=== PATIENT | female | born 1995 | race Two or more races ===

== ENCOUNTER 2017-03-21 19:51 | Observation (INO) | payer MEDICAID ==
[2017-03-21 20:47] LABS: Urine Bilirubin Negative (Negative); Urine Blood Negative /uL (Negative); Urine Color Yellow (Yellow); Urine Glucose Normal (Normal); Urine Ketone Negative (Negative); Urine Mucus FEW (None Seen); Urine Nitrite Negative (Negative); Urine RBC 1 /hpf (0 - 4); Urine Squamous Epithelial Cell FEW /hpf (<5); Urine Urobilinogen Normal (Negative)
[2017-03-21] MEDS ORDERED: FERR325T PO (21:03)
[2017-03-21] MEDS ORDERED: PREN-96 PO (21:04)
== END 2017-03-21 20:45 | disposition home or self-care (01) | DRG 566 ==
LOC: LDRP 19:51
PROVIDERS: ADMIT Specialist; ATTEND Specialist
DX: O26.893 Other specified pregnancy related conditions, third trimester (principal); R10.2 Pelvic and perineal pain; Z3A.32 32 weeks gestation of pregnancy
CPT/HCPCS: 59025; 80307; 81001; 81002; G0378

== ENCOUNTER 2017-05-02 02:24 | Observation (INO) | payer MEDICAID ==
[~2017-05-02 02:24] MED LIST: FERR325T PO; PREN-96 PO
[2017-05-02 04:03] LABS: Urine Bacteria FEW /hpf (None Seen); Urine Blood Negative /uL (Negative); Urine Mucus FEW (None Seen); Urine Specific Gravity 1.035 (1.001-1.035); Urine WBC 19 /hpf (0 - 5)
[2017-05-02 04:21] LABS: Alcohol, Urine < 3.0 mg/dL (0-5); Amphetamine Screen, Urine NEGATIVE (NEGATIVE); Barbiturate Scree,Urine NEGATIVE (NEGATIVE); Benzodiazephine Screen, Urine NEGATIVE (NEGATIVE); Cannabinoid Screen, Urine NEGATIVE (NEGATIVE); Cocaine Screen, Urine NEGATIVE (NEGATIVE); Opiate Scree,Urine NEGATIVE (NEGATIVE); Phencyclidine Screen, Urine NEGATIVE (NEGATIVE)
== END 2017-05-02 06:50 | disposition home or self-care (01) | DRG 566 ==
LOC: LDRP 02:24
PROVIDERS: ADMIT Specialist; ATTEND Specialist
DX: O26.893 Other specified pregnancy related conditions, third trimester (principal); N89.8 Other specified noninflammatory disorders of vagina; O99.333 Smoking (tobacco) complicating pregnancy, third trimester; Z3A.38 38 weeks gestation of pregnancy
CPT/HCPCS: 59025; 76805; 76818; 80307; 81001; 81002; 87081; G0378

== ENCOUNTER 2017-05-13 12:55 | Observation (INO) | payer MEDICAID ==
[~2017-05-13] VITALS: Ht 165.1 cm; Wt 97.5 kg
[2017-05-13] MEDS ORDERED: LACTATED RINGER'S 1,000 ML IV ONE (13:45)
[2017-05-13] MEDS ORDERED: FOLI1TAB6 PO (13:46)
[2017-05-13 14:38] LABS: Basophils # (auto) 0.1 uL; Basophils % (auto) 0.5 % (0.0-2.0); Eosinophils # (auto) 0.1 uL; Eosinophils % (auto) 0.8 % (0.0-7.0); Hematocrit 40.8 % (36.0-46.0); Hemoglobin 14.2 g/dL (12.2-16.2); Lymphocytes # (auto) 1.7 uL; Lymphocytes % (auto) 12.1 % (10.0-50.0); Mean Corpuscular Hemoglobin 31.2 pg (28.0-32.0); Mean Corpuscular Hgb Conc. 34.7 g/dL (32.0-36.0); Mean Corpuscular Volume 89.9 fL (80.0-100.0); Mean Platelet Volume 8.6 fL (6.9-10.8); Monocytes # (auto) 0.9 uL; Monocytes % (auto) 6.2 % (0.0-12.0); Neutrophils # (auto) 11.4 uL; Neutrophils % (auto) 80.4 % (37.0-80.0); Platelet Count (auto) 200 10^3/uL (140-450); Red Cell Distribution Width 14.1 % (11.8-14.3); White Blood Cell 14.2 10^3/uL (4.4-10.8)
[2017-05-13 14:58] LABS: Albumin 2.3 g/dL (3.4-5.0); BUN/Creatinine Ratio 13.3; Bilirubin, Total 0.2 mg/dL (0.2-1.0); Calcium 8.6 mg/dL (8.5-10.1); Potassium 4.1 mmol/L (3.5-5.1); Total Protein 6.4 g/dL (6.4-8.2)
[2017-05-14] MEDS ORDERED: CLINDAMYCIN 900MG IV 50 ML IV ONE (00:23)
== END 2017-05-13 16:00 | disposition home or self-care (01) | DRG 566 ==
LOC: INTOOBSV 12:55 → LDRP 12:55
PROVIDERS: ADMIT Obstetrics & Gynecology; ATTEND Obstetrics & Gynecology
DX: O62.9 Abnormality of forces of labor, unspecified (principal); Z87.891 Personal history of nicotine dependence; Z3A.40 40 weeks gestation of pregnancy
CPT/HCPCS: 36415; 59025; 76805; 76818; 80053; 80307; 81002; 85025; 86592; G0378; 96365; 96366

== ENCOUNTER 2017-05-13 22:42 | Inpatient (IN) | payer MEDICAID ==
[~2017-05-13] VITALS: Ht 165.1 cm; Wt 97.5 kg
[~2017-05-13 22:42] MED LIST changes: +FOLI1TAB6 PO
[2017-05-14] MEDS ORDERED: LACT. RINGERS/OXYTOCIN 20UNITS 1,000 ML IV SCH ×2 (00:21→08:06)
[2017-05-14] MEDS ORDERED: METHYLERGONOVINE MALEATE 0.2 MG/ML AMP IM PRN (00:30)
[2017-05-14] MEDS ORDERED: DERMOPLAST 60ML BOTTLE TOP PRN (00:30)
[2017-05-14] MEDS ORDERED: PHISODERM TOP SOLN 240ML BTL TOP PRN (00:30)
[2017-05-14] MEDS ORDERED: LIDOCAINE 2%HCL (LOCAL ANESTH.) INJ 20ML MDV IJ PRN (00:30)
[2017-05-14] MEDS ORDERED: NALBUPHINE HCL 10 MG/1ml INJECTION IV PRN (00:30)
[2017-05-14] MEDS ORDERED: WITCH HAZEL-GLYCERIN PAD TOP PRN (00:30)
[2017-05-14] MEDS: LACTATED RINGER'S 1,000 ML IV SCH ×3 (01:00→18:00)
[2017-05-14 01:22] LABS: Basophils # (auto) 0.1 uL; Basophils % (auto) 0.5 % (0.0-2.0); Eosinophils # (auto) 0.1 uL; Eosinophils % (auto) 0.5 % (0.0-7.0); Hemoglobin 13.8 g/dL (12.2-16.2); Lymphocytes # (auto) 1.9 uL; Lymphocytes % (auto) 13.1 % (10.0-50.0); Mean Corpuscular Hemoglobin 30.8 pg (28.0-32.0); Mean Corpuscular Hgb Conc. 34.6 g/dL (32.0-36.0); Mean Corpuscular Volume 89.1 fL (80.0-100.0); Mean Platelet Volume 8.9 fL (6.9-10.8); Monocytes % (auto) 6.7 % (0.0-12.0); Neutrophils # (auto) 11.6 uL; Neutrophils % (auto) 79.2 % (37.0-80.0); Platelet Count (auto) 208 10^3/uL (140-450); Red Cell Distribution Width 14.2 % (11.8-14.3); White Blood Cell 14.6 10^3/uL (4.4-10.8)
[2017-05-14] MEDS: CLINDAMYCIN 900MG IV 50 ML IV SCH ×3 (01:22→18:16)
[2017-05-14 01:35] LABS: Urine Bilirubin Negative (Negative); Urine Blood 3+ /uL (Negative); Urine Color PINK (Yellow); Urine Glucose Normal (Normal); Urine Ketone Negative (Negative); Urine Mucus FEW (None Seen); Urine Nitrite Negative (Negative); Urine RBC 1072 /hpf (0 - 4); Urine Squamous Epithelial Cell FEW /hpf (<5); Urine Urobilinogen Normal (Negative)
[2017-05-14 01:36] LABS: INR 0.89 (0.9-1.15); Partial Thromboplastin Time 25.2 sec (22.64-33.71); Prothrombin Time 9.7 sec (9.37-12.3)
[2017-05-14] MEDS ORDERED: PROMETHAZINE HCL 25 MG/ML 1ML IV ONE (02:00)
[2017-05-14 02:17] LABS: Albumin 2.5 g/dL (3.4-5.0); BUN/Creatinine Ratio 16.3; Bilirubin, Total 0.2 mg/dL (0.2-1.0); Calcium 8.6 mg/dL (8.5-10.1); Potassium 3.7 mmol/L (3.5-5.1); Total Protein 6.6 g/dL (6.4-8.2)
[2017-05-14] MEDS ORDERED: TERBUTALINE SULFATE 1 MG/ML 1ML VIAL SC ONE ×3 (05:37→08:15)
[2017-05-14] MEDS ORDERED: fentaNYL CITRATE 100 MCG/2 ML VL IV ONE (05:45)
[2017-05-14] MEDS ORDERED: LIDOCAINE HCL 2 %PF INJ 10ML AMP IJ ONE ×2 (05:45→05:58)
[2017-05-14] MEDS ORDERED: fentaNYL W ROPIVACAINE 150 ML EPI SCH (05:45)
[2017-05-14] MEDS ORDERED: ePHEDrine SULFATE 50 MG/ML AMP IV ONE (05:45)
[2017-05-14] MEDS ORDERED: NALOXONE HCL 0.4 MG/ML VIAL IV ONE (05:45)
[2017-05-14] MEDS ORDERED: fentaNYL W ROPIVACAINE 150 ML EPI ONE (05:48)
[2017-05-14] MEDS ORDERED: fentaNYL CITRATE 100 MCG/2 ML VL ONE (05:48)
[2017-05-14] MEDS ORDERED: ePHEDrine SULFATE 50 MG/ML AMP ONE (05:48)
[2017-05-14] MEDS ORDERED: CARBOPROST TROMETHAMINE 250 MCG/1ML VIAL IM ONE ×2 (14:40→14:45)
[2017-05-14] MEDS ORDERED: DIPHENOXYLATE W/ATROPINE 2.5 MG TAB ONE (14:41)
[2017-05-14] MEDS ORDERED: ONDANSETRON HCL 4 MG/2 ML VIAL ONE (14:42)
[2017-05-14] MEDS ORDERED: ONDANSETRON HCL 4 MG/2 ML VIAL IV PRN (14:45)
[2017-05-14] MEDS ORDERED: DIPHENOXYLATE W/ATROPINE 2.5 MG TAB PO PRN ×2 (14:45→17:00)
[2017-05-14] MEDS: CARBOPROST TROMETHAMINE 250 MCG/1ML VIAL IM PRN ×3 (14:48→15:14)
[2017-05-14] MEDS ORDERED: IBUPROFEN 600 MG TAB PO ONE (16:51)
[2017-05-14] MEDS ORDERED: METHYLERGONOVINE MALEATE 0.2 MG/ML AMP IM ONE (17:00)
[2017-05-14] MEDS: ACETAMINOPHEN 325 MG TAB PO PRN (19:48)
[2017-05-14 20:00] VITALS: BP 133/78
[2017-05-14 21:17] LABS: Basophils # (auto) 0.1 uL; Basophils % (auto) 0.6 % (0.0-2.0); Eosinophils # (auto) 0 uL; Eosinophils % (auto) 0.2 % (0.0-7.0); Hematocrit 36.1 % (36.0-46.0); Hemoglobin 12.5 g/dL (12.2-16.2); Lymphocytes # (auto) 1.7 uL; Lymphocytes % (auto) 9.2 % (10.0-50.0); Mean Corpuscular Hgb Conc. 34.6 g/dL (32.0-36.0); Mean Corpuscular Volume 89.7 fL (80.0-100.0); Mean Platelet Volume 8.6 fL (6.9-10.8); Monocytes # (auto) 1.5 uL; Monocytes % (auto) 8.3 % (0.0-12.0); Neutrophils # (auto) 14.8 uL; Neutrophils % (auto) 81.7 % (37.0-80.0); Nucleated Red Blood Cells % 0.1 %; Platelet Count (auto) 181 10^3/uL (140-450); Red Cell Distribution Width 14.3 % (11.8-14.3); White Blood Cell 18.1 10^3/uL (4.4-10.8)
[2017-05-14] MEDS: IBUPROFEN 600 MG TAB PO PRN (23:04)
[2017-05-14 23:46] VITALS: BP 103/53
[2017-05-15] MEDS: LACTATED RINGER'S 1,000 ML IV SCH ×3 (00:21→16:21)
[2017-05-15] MEDS: CLINDAMYCIN 900MG IV 50 ML IV SCH ×3 (01:15→16:49)
[2017-05-15] MEDS: ACETAMINOPHEN 325 MG TAB PO PRN (03:22)
[2017-05-15] MEDS ORDERED: TETANUS-DIPTH-ACEL PERTUSSIS 0.5ML SYRG IM ONE (03:30)
[2017-05-15 04:11] VITALS: BP 124/64
[2017-05-15 07:30] VITALS: BP 134/88
[2017-05-15] MEDS ORDERED: DOCUSATE CALCIUM 240 MG CAP PO SCH (10:00)
[2017-05-15 12:01] VITALS: BP 133/85
[2017-05-15] MEDS: IBUPROFEN 600 MG TAB PO PRN ×2 (13:13→16:50)
[2017-05-15 16:00] VITALS: BP 131/71
[2017-05-15 18:36] VITALS: BP 132/84
[2017-05-15 23:11] VITALS: BP 111/57
[2017-05-16] MEDS: LACTATED RINGER'S 1,000 ML IV SCH ×2 (00:21→08:21)
[2017-05-16] MEDS: CLINDAMYCIN 900MG IV 50 ML IV SCH ×2 (00:33→09:00)
[2017-05-16] MEDS: IBUPROFEN 600 MG TAB PO PRN (01:43)
[2017-05-16 03:30] VITALS: BP 127/86
[2017-05-16 07:00] VITALS: BP 128/89
== END 2017-05-16 10:00 | disposition home or self-care (01) | DRG 560 ==
LOC: OBSVTOIN 22:42 → LDRP 22:42
PROVIDERS: ADMIT Obstetrics & Gynecology; ATTEND Obstetrics & Gynecology
PROC: 0KQM0ZZ Repair Perineum Muscle, Open Approach (ICD-10-PCS; principal; 2017-05-14)
PROC: 10E0XZZ Delivery of Products of Conception, External Approach (ICD-10-PCS; 2017-05-14)
PROC: 0W8NXZZ Division of Female Perineum, External Approach (ICD-10-PCS; 2017-05-14)
PROC: 3E0R3BZ Introduction of Anesthetic Agent into Spinal Canal, Percutaneous Approach (ICD-10-PCS; 2017-05-14)
PROC: 00HU33Z Insertion of Infusion Device into Spinal Canal, Percutaneous Approach (ICD-10-PCS; 2017-05-14)
DX: O48.0 Post-term pregnancy (principal); O99.824 Streptococcus B carrier state complicating childbirth; O77.0 Labor and delivery complicated by meconium in amniotic fluid; O62.2 Other uterine inertia; O70.1 Second degree perineal laceration during delivery; Z37.0 Single live birth; Z3A.40 40 weeks gestation of pregnancy; Z88.1 Allergy status to other antibiotic agents
CPT/HCPCS: 36415; 59025; 80053; 80307; 81001; 81002; 85025; 85610; 85730; 86592; 86850; 86900; 86901; 90471; 90715; 94762; 96361; 96365; 96366; 96372; G0378; J2405; J2590; J3010; J3490